=== PATIENT | male | born 1950 | race Caucasian/White ===

== ENCOUNTER → 2024-01-05 17:55 | Outpatient (CLI) | payer OTHER, SELFPAY ==
[2024-01-05 18:42] LABS: COVID-19 CEPHEID 4-PLEX PCR Negative (Negative); Influenza A - CEPHEID Flu A NEGATIVE (NEGATIVE); Influenza B - CEPHEID Flu B NEGATIVE (NEGATIVE); Respiratory Syncytial Virus Negative (Negative)
== END ==
PROVIDERS: Visit Provider Physician Assistant Medical
DX: R05.9 Cough, unspecified (principal)
CPT/HCPCS: 0241U

== ENCOUNTER 2024-01-06 09:48 | Observation (INO) | payer OTHER, SELFPAY ==
[2024-01-06] VITALS (9 sets, daily range): BP systolic 116–168; BP diastolic 69–82; PULSE 85–105; RESP 14–20; TEMP 36.8–37.1; O2SAT 85–98; BMI 29.0
--- NOTE | 2024-01-06 09:54 | DI.RAD.S_ITS ---
PROCEDURE: XR CHEST 1V INDICATIONS: chest pain TECHNIQUE: One view of the chest was acquired. COMPARISON: None. FINDINGS: Surgical changes and devices: None. Lungs and pleura: Lungs are clear. Masslike nodular density, right apex, possibly extrapulmonary. No pleural effusions or pneumothorax. Mediastinum: Mediastinal contours appear normal. Heart size is normal. Bones and chest wall: No suspicious bony lesions. Overlying soft tissues appear unremarkable. IMPRESSION: 1. No focal infiltrate. 2. Right apical masslike lesion. Recommend CT chest for further evaluation. Dictated by: Xu Ortiz M.D. on 01/06/2024 at 10:44 Approved by: Xu Ortiz M.D. on 01/06/2024 at 10:46
[2024-01-06] MEDS: SODIUM CHLORIDE 0.9% 1,000 ML 150 ML IV (10:04)
[2024-01-06 10:18] LABS: Add Manual Diff / Slide Review NO; Basophils Absolute Auto 0 /uL (0-100); Basophils Percent Auto 0.9 % (0-2); Eosinophils Absolute Auto 200 /uL (0-450); Hematocrit 43.7 % (41-53); Hemoglobin 14.8 g/dL (13.5-17.5); Lymphocytes Absolute Auto 900 /uL (1100-4500); Lymphocytes Percent Auto 15.7 % (25-40); Mean Corpuscular HGB Conc 33.8 % (30-36); Mean Corpuscular Hemoglobin 32.4 PG (26-34); Monocytes Absolute Auto 900 /uL (0-900); Monocytes Percent Auto 16.3 % (3-14); Neutrophils Absolute Auto 3600 /uL (1500-7000); Neutrophils Percent Auto 64.1 % (50-75); Platelet Count 241 X10^3/uL (150-400); Red Blood Cell Count 4.55 X10^6/uL (4.5-5.9); Red Cell Distribution Width 13.6 % (11.6-14.8); White Blood Cell Count 5.6 X10^3/uL (4.5-11.0)
[2024-01-06 10:24] LABS: Alanine Aminotransferase 27 IU/L (<50); Albumin 4.1 g/dL (3.5-5.0); Albumin Globulin Ratio 1.5 (1.0-2.8); Alkaline Phosphatase 80 U/L (38-126); Aspartate Aminotransferase 48 IU/L (17-59); BUN Creatinine Ratio 17.2 (6-22); Bilirubin Total 0.5 mg/dL (0.2-1.3); Blood Urea Nitrogen 15 mg/dL (9-20); Calcium 8.8 mg/dL (8.4-10.2); Carbon Dioxide 30 mmol/L (22-32); Chloride 100 mmol/L (98-107); Creatine Kinase 133 U/L (55-170); Estimated Glomerular Filt Rate > 60 mL/min (>60); Globulin 2.7 g/dL (1.7-4.1); Glucose 137 mg/dL (80-110); HEMOLYSIS 16 (0-50); Lipase 62 U/L (23-300); Potassium 4.1 mmol/L (3.4-5.1); Sodium 134 mmol/L (137-145); Total Protein 6.8 g/dL (6.3-8.2)
[2024-01-06 10:25] LABS: Lactate (Lactic Acid) 2.4 mmol/L (0.7-2.1)
--- NOTE | 2024-01-06 10:31 | ED_ITS ---
HPI - Syncope General Chief Complaint: Syncope Stated Complaint: SOB, passed out, tight throat Time Seen by Provider: 01/06/24 09:53 Source: EMS Mode of arrival: EMS History of Present Illness HPI narrative: Patient 73-year-old male without significant past medical history presenting today with a syncopal episode. 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 States that today he was getting ready to meet friends for breakfast he felt his throat was closing off any passed out. EMS gave him Benadryl and albuterol. He is able to speak and manage his own secretions. He has no chest pain. He was seen in the walk-in clinic yesterday because he has had this cough. He has not had fever or chills. Denies any significant shortness of breath. But he does not appear to have some difficulty swallowing he has no obvious angioedema. Reports that his previous anaphylactic reactions he has hives itching difficulty breathing and feels like his throat closes up. He denies any sort of seafood or shellfish. Related Data Home Medications Medication Instructions Recorded Confirmed No Known Home Medications 01/05/24 Allergies Allergy/AdvReac Type Severity Reaction Status Date / Time No Known Drug Allergies Allergy Unverified 01/06/24 09:58 Patient History Social History household members: none Smoking Status: Unknown if ever smoked Smoking Status: Unknown if ever smoked alcohol intake frequency: a few times a week Substance Use Type: does not use Exam Initial Vital Signs Initial Vital Signs: Vital Signs Temperature 98.3 F 01/06/24 09:54 Pulse Rate 100 H 01/06/24 09:54 Respiratory Rate 18 01/06/24 09:54 Blood Pressure 168/82 H 01/06/24 09:54 Pulse Oximetry 98 01/06/24 09:54 Oxygen Delivery Method Room Air 01/06/24 09:54 GENERAL: Alert 73-year-old male does appear in acute distress HEENT: Head atraumatic,EOMI, pupils reactive, face symmetric, no tongue swelling lip swelling uvula within normal limits he is managing secretions but is working a little bit harder to swallow no cervical lymphadenopathy CARDIOVASCULAR: Regular rate and rhythm without murmurs, rubs or gallops. RESPIRATORY: Breath sounds equal bilaterally, no wheezes rales or rhonchi. ABDOMEN: Soft, nontender. Normoactive bowel sounds all 4 quadrants. No guarding or rebound. EXTREMITIES: Normal range of motion, no clubbing or edema. Neurovascularly intact NEUROLOGICAL: Alert and oriented x4.Normal gait and speech. SKIN: Warm, dry, no laceration, no petechiae, no rashes or lesions. Course Orders Ordered: ED Orders 01/06/24 09:45 BNP [NT-proBNP (BNP-Adult 18+)] Stat Complete Blood Count AUTO DIFF Stat Comprehensive Metabolic Panel Stat D Dimer Stat Lactate (Lactic Acid) Stat Lipase Stat Troponin & CK Cardiac Panel Stat 01/06/24 09:54 XR chest 1V Stat EKG-12 Lead Stat 01/06/24 10:00 Respiratory Panel (Film Array) Stat 01/06/24 11:03 CT soft tissue neck w con Stat 01/06/24 11:29 CT angio chest PE protocol Stat Discontinued Medications Acetaminophen (Acetaminophen 325 Mg Tablet) 650 mg PO Q6H PRN PRN Reason: Fever/Mild Pain (1-3) Al Hydrox/Mg Hydrox/Simethicone (Mag Hydrox/Alum/Simeth 30 Ml Udc) 30 ml PO Q6HR PRN PRN Reason: Dyspepsia Albuterol/Ipratropium (Albuterol/Ipratropium 3 Ml Ampul) 3 ml INH NOW ONE Stop: 01/06/24 11:29 Last Admin: 01/06/24 11:43 Dose: 3 ml Documented By: MARCO ANTONIO Epinephrine HCl (Epinephrine 1 Mg/Ml) 0.5 mg IM NOW ONE Stop: 01/06/24 10:32 Last Admin: 01/06/24 10:48 Dose: 0.5 mg Documented By: OBI Heparin Sodium (Porcine) (Heparin 5,000 Unit/Ml Vial) 5,000 unit SUBCUT BID NICOLA Sodium Chloride (Normal Saline 0.9%) 1,000 mls @ 150 mls/hr IV CONT NICOLA Last Admin: 01/06/24 10:04 Dose: 150 mls/hr Documented By: OBI Sodium Chloride (Normal Saline 0.45%) 1,000 mls @ 100 mls/hr IV CONT NICOLA Magnesium Hydroxide (Magnesium Hydroxide 30 Ml Udc) 30 ml PO DAILY PRN PRN Reason: Constipation Methylprednisolone (Methylprednisolone 125 Mg/2 Ml Vial) 125 mg IV NOW ONE Stop: 01/06/24 10:32 Last Admin: 01/06/24 10:47 Dose: 125 mg Documented By: OBI Naloxone HCl (Naloxone 0.4 Mg/Ml Vial) 0.2 mg IV Q2MIN PRN PRN Reason: Opiate Reversal Ondansetron HCl (Ondansetron 4 Mg/2 Ml Inj) 4 mg IV Q8HR PRN PRN Reason: Nausea And Vomiting Oxycodone HCl (Oxycodone Ir 5 Mg Tablet) 5 mg PO Q3H PRN PRN Reason: Pain, Moderate (4-6) Vital Signs Vital signs: Vital Signs - 8 hr 01/06/24 10:51 01/06/24 11:43 01/06/24 12:12 Pulse Rate 85 96 H 92 H Respiratory Rate 14 20 20 Blood Pressure 131/69 126/71 Pulse Oximetry 97 97 97 Oxygen Delivery Method Nasal Cannula Nasal Cannula Nasal Cannula Oxygen Flow Rate 2 2 2 01/06/24 12:39 01/06/24 13:23 01/06/24 14:05 Pulse Rate 105 H 100 H Respiratory Rate 20 18 Blood Pressure 125/78 124/72 Pulse Oximetry 95 96 85 L Oxygen Delivery Method Room Air Room Air Room Air Oxygen Flow Rate 01/06/24 14:09 Pulse Rate Respiratory Rate Blood Pressure Pulse Oximetry 95 Oxygen Delivery Method Nasal Cannula Oxygen Flow Rate 2 MDM - Syncope Lab Data 01/06/24 09:45 01/06/24 09:45 Labs: Lab Results 01/06/24 01/06/24 01/06/24 Range/Units 09:45 10:00 12:50 WBC 5.6 (4.5-11.0) X10^3/uL RBC 4.55 (4.5-5.9) X10^6/uL Hgb 14.8 (13.5-17.5) g/dL Hct 43.7 (41-53) % MCV 96.0 (80-100) fL MCH 32.4 (26-34) PG MCHC 33.8 (30-36) % RDW 13.6 (11.6-14.8) % Plt Count 241 (150-400) X10^3/uL Neut % (Auto) 64.1 (50-75) % Lymph % (Auto) 15.7 L (25-40) % [place] % (Auto) 16.3 H (3-14) % Eos % (Auto) 3.0 (2-4) % Baso % (Auto) 0.9 (0-2) % Neut # (Auto) 3600 (6245-3525) /uL Lymph # (Auto) 900 L (9662-0869) /uL [place] # (Auto) 900 (0-900) /uL Eos # (Auto) 200 (0-450) /uL Baso # (Auto) 0 (0-100) /uL D-Dimer 945 H (<500) ng/ml Sodium 134 L (137-145) mmol/L Potassium 4.1 (3.4-5.1) mmol/L Chloride 100 (98-107) mmol/L Carbon Dioxide 30 (22-32) mmol/L BUN 15 (9-20) mg/dL Creatinine 0.87 (0.66-1.25) mg/dL Estimated GFR > 60 (>60) mL/min BUN/Creatinine Ratio 17.2 (6-22) Glucose 137 H (80-110) mg/dL Lactate 2.4 H 1.3 (0.7-2.1) mmol/L Calcium 8.8 (8.4-10.2) mg/dL Total Bilirubin 0.5 (0.2-1.3) mg/dL AST 48 (17-59) IU/L ALT 27 (<50) IU/L Alkaline Phosphatase 80 (38-126) U/L Total Creatine Kinase 133 (55-170) U/L Troponin I < 0.012 (0.01-0.034) ng/mL NT-Pro-B Natriuret Pep 21 (<125) pg/mL Total Protein 6.8 (6.3-8.2) g/dL Albumin 4.1 (3.5-5.0) g/dL Globulin 2.7 (1.7-4.1) g/dL Albumin/Globulin Ratio 1.5 (1.0-2.8) Lipase 62 (23-300) U/L Chlamy pneumoniae PCR Not detected (Not Detect) Adenovirus (PCR) Not detected (Not Detect) B.parapertussis DNA PCR Not detected (Not Detecte) Coronavirus OC43 (PCR) Not detected (Not Detect) Coronavirus HKU1 (PCR) Not detected (Not Detect) Coronavirus 229E (PCR) Not detected (Not Detect) SARS-CoV-2 (PCR) Not detected (Not Detecte) Coronavirus NL63 (PCR) Not detected (Not Detect) Human Metapneumovir PCR Not detected (Not Detect) Influenza Type A (PCR) Not detected (Not Detect) Influenza Type B (PCR) Not detected (Not Detect) M. pneumoniae (PCR) Not detected (Not Detect) Parainfluenza 1 (PCR) Not detected (Not Detect) Parainfluenza 2 (PCR) Not detected (Not Detect) Parainfluenza 3 (PCR) Detected H (Not Detect) Parainfluenza 4 (PCR) Not detected (Not Detect) RSV (PCR) Not detected (Not Detect) Entero/Rhino (PCR) Not detected (Not Detect) Point of Care Testing Glucose POC 121 Imaging Data Chest x-ray: Radiologist's Impression: PROCEDURE: XR CHEST 1V INDICATIONS: chest pain TECHNIQUE: One view of the chest was acquired. COMPARISON: None. FINDINGS: Surgical changes and devices: None. Lungs and pleura: Lungs are clear. Masslike nodular density, right apex, possibly extrapulmonary. No pleural effusions or pneumothorax. Mediastinum: Mediastinal contours appear normal. Heart size is normal. Bones and chest wall: No suspicious bony lesions. Overlying soft tissues appear unremarkable. IMPRESSION: 1. No focal infiltrate. 2. Right apical masslike lesion. Recommend CT chest for further evaluation. Dictated by: Xu Ortiz M.D. on 01/06/2024 at 10:44 Approved by: Xu Ortiz M.D. on 01/06/2024 at 10:46 CT scan - chest: Radiologist's Impression: PROCEDURE: CT ANGIO CHEST PE PROTOCOL INDICATIONS: mass right apex and hypoxic TECHNIQUE: After the administration of intravenous contrast, 2 mm thick sections acquired from the pulmonary apices to the posterior costophrenic angles. 3-dimensional maximum intensity projection (MIP) coronal and sagittal reformats were then acquired through the thorax. For radiation dose reduction, the following was used: automated exposure control, adjustment of mA and/or kV according to patient size. COMPARISON: [facility], CT, CT SOFT TISSUE NECK W CON, 01/06/2024, 11:17. [facility], CR, XR CHEST 1V, 01/06/2024, 9:57. FINDINGS: Image quality: Diagnostic. Central pulmonary arteries are well opacified. Segmental branches are poorly evaluated. Pulmonary arteries: Pulmonary arteries are normal in size, and demonstrate no intraluminal filling defects to suggest central pulmonary embolism. Artifact and heterogeneous opacification is present within the segmental branches bilaterally. Lower Neck: No enlarged lymph nodes. Thyroid: No thyroid nodules which require sonographic follow up, per consensus guidelines. Axillae: No enlarged lymph nodes. Chest Wall: Unremarkable. Bones: Unremarkable. Lungs and Pleura: No pneumothorax or pleural effusions. Minimal dependent changes are present within the right base. No right apical mass. Abnormality on chest x- ray corresponds to bony overgrowth at the costochondral junction. Heart: Heart size is normal. No pericardial effusion. Thoracic Vessels: No aortic aneurysm. Mediastinum and Shagufta: Scattered enlarged mediastinal lymph nodes are present the largest measuring 1.4 cm at the shahnaz. Right hilar node is present measuring 1.5 cm. . Esophagus: No wall thickening. There is prominent thickening with luminal narrowing in the distal esophagus. There is a central masslike appearance causing luminal narrowing appearing to originate posteriorly. Thickening extends across the gastroesophageal junction. Upper Abdomen: Visualized upper abdomen solid organs and bowel loops appear normal. IMPRESSION: No central pulmonary embolus. Segmental branches are heterogeneous and small areas of emboli cannot be definitively excluded compared artifact. Thickening with masslike appearance in the distal esophagus. Further evaluation with endoscopy is recommended to exclude presence of malignancy. Thickening extends across the gastroesophageal junction. Prominent mediastinal and hilar lymph nodes. While these could be reactive in nature, given esophageal findings, further evaluation is recommended. Dictated by: Jessica Hernandez M.D. on 01/06/2024 at 13:56 Approved by: Jessica Hernandez M.D. on 01/06/2024 at 14:00 ct soft tissue neck: Radiologist's Impression: ADDENDUMThis report includes an Addendum and supersedes previous reports for this exam. PROCEDURE: CT SOFT TISSUE NECK W CON INDICATIONS: throat closing TECHNIQUE: After the administration of intravenous contrast, 3.0 mm axial sections acquired from the sella to the aortic arch. Additional oblique axial 3.0 mm sections acquired through the pharynx. 3 mm thick coronal and sagittal reformats were generated. For radiation dose reduction, the following was used: automated exposure control. COMPARISON: None. FINDINGS: Image quality: Excellent. Lymph nodes: No enlarged lymph nodes seen throughout the neck. Vessels: Visualized vasculature appears patent. Neck spaces: The oropharynx, nasopharynx, and pharynx demonstrate no mucosal lesions. The vocal cords, false vocal cords, pyriform sinuses, epiglottis, vallecula, and tongue base all appear normal. Extramucosal spaces appear unremarkable. Glands: The parotid and submandibular glands appear normal. Thyroid gland is unremarkable. Miscellaneous: Visualized brain and orbits appear normal. Lung apices appear clear. Superficial soft tissues appear normal. Bones: No suspicious bony lesions. Visualized sinuses and mastoids appear unremarkable. IMPRESSION: No abnormal masses or fluid collections are identified. Dictated by: Jessica Hernandez M.D. on 01/06/2024 at 11:58 Approved by: Jessica Hernandez M.D. on 01/06/2024 at 11:59 ADDENDUM: COMPARISON:[facility], [place], XR CHEST 1V, 01/06/2024, 9:57. The area of abnormality identified on chest x-ray does not correspond to abnormal pulmonary mass. It reflects bony overgrowth at the costochondral junction. Dictated by: Jessica Hernandez M.D. on 01/06/2024 at 12:10 Approved by: Jessica Hernandez M.D. on 01/06/2024 at 12:11 Addendum Dictated By: Jessica Hernandez MD Addendum Signed By: 01/06/241210 Addendum Cosigned By: DD/ /19/1211 TD/TT: 01/06/2407/19/1211 PROCEDURE: CT SOFT TISSUE NECK W CON INDICATIONS: throat closing TECHNIQUE: After the administration of intravenous contrast, 3.0 mm axial sections acquired from the sella to the aortic arch. Additional oblique axial 3.0 mm sections acquired through the pharynx. 3 mm thick coronal and sagittal reformats were generated. For radiation dose reduction, the following was used: automated exposure control. COMPARISON: None. FINDINGS: Image quality: Excellent. Lymph nodes: No enlarged lymph nodes seen throughout the neck. Vessels: Visualized vasculature appears patent. Neck spaces: The oropharynx, nasopharynx, and pharynx demonstrate no mucosal lesions. The vocal cords, false vocal cords, pyriform sinuses, epiglottis, vallecula, and tongue base all appear normal. Extramucosal spaces appear unremarkable. Glands: The parotid and submandibular glands appear normal. Thyroid gland is unremarkable. Miscellaneous: Visualized brain and orbits appear normal. Lung apices appear clear. Superficial soft tissues appear normal. Bones: No suspicious bony lesions. Visualized sinuses and mastoids appear unremarkable. IMPRESSION: No abnormal masses or fluid collections are identified. Dictated by: Jessica Hernandez M.D. on 01/06/2024 at 11:58 Approved by: Jessica Hernandez M.D. on 01/06/2024 at 11:59 ECG Data Attestation: I personally reviewed and interpreted this ECG as follows: Prior ECG tracings: not available for review Interpretation: Normal sinus rhythm rate 90 OK interval 152 QRS 134 QTC 481 right bundle-branch block present no acute ST changes no priors to compare MDM Narrative Medical decision making narrative: Patient 73-year-old male presents syncopal episode and throat closing up. He is having some difficulty swallowing but is managing his secretions he has no other evidence of anaphylaxis. He is able to speak but there is some trouble. He has no stridor lung sounds are clear. He was seen for upper respiratory like symptoms that are walk-in clinic yesterday COVID, RSV influenza testing was negative. Will treat for possible anaphylaxis give epinephrine and Solu-Medrol. Was given Benadryl by EMS. Patient had very little help with anaphylaxis he has in no acute distress but there is some trouble swallowing. He is noted to now be hypoxic requiring 1-2 L of oxygen. Chest x-ray does show a right apical mass Blood work has been reviewed WBC 5.6, hemoglobin 14.8, hematocrit 43.7, platelets 240 D-dimer 945, lactate 2.4, troponin negative, respiratory panel positive CT soft tissue neck ordered which does not show any acute abnormality apical lung mass not identified. CT angio chest was done for elevated D-dimer and persistent hypoxia no evidence of pulmonary embolism but there is a masslike structure in the distal esophagus Dr. Gaytan consulted in regards to masslike structure in the distal esophagus Dr. Goode updated on patient's symptoms test results and kindly accepts to observation Discharge Plan Departure Patient Disposition: Admitted as Observation Clinical Impression: Acute bronchitis due to parainfluenza virus, Hypoxia, Esophageal mass Admit Date/Time: 01/06/24 14:14 Admit Provider: Chris Goode
[2024-01-06 10:33] LABS: NT-proBNP (BNP-Adult 18+) 21 pg/mL (<125)
[2024-01-06 10:35] LABS: Troponin I < 0.012 ng/mL (0.01-0.034)
[2024-01-06] MEDS: methylPREDNISolone 125 MG/2 ML VIAL IV (10:47)
[2024-01-06] MEDS: EPINEPHrine 1 MG/ML 0.5 MG IM (10:48)
--- NOTE | 2024-01-06 11:03 | DI.CT.S_ITS ---
PROCEDURE: CT SOFT TISSUE NECK W CON INDICATIONS: throat closing TECHNIQUE: After the administration of intravenous contrast, 3.0 mm axial sections acquired from the sella to the aortic arch. Additional oblique axial 3.0 mm sections acquired through the pharynx. 3 mm thick coronal and sagittal reformats were generated. For radiation dose reduction, the following was used: automated exposure control. COMPARISON: None. FINDINGS: Image quality: Excellent. Lymph nodes: No enlarged lymph nodes seen throughout the neck. Vessels: Visualized vasculature appears patent. Neck spaces: The oropharynx, nasopharynx, and pharynx demonstrate no mucosal lesions. The vocal cords, false vocal cords, pyriform sinuses, epiglottis, vallecula, and tongue base all appear normal. Extramucosal spaces appear unremarkable. Glands: The parotid and submandibular glands appear normal. Thyroid gland is unremarkable. Miscellaneous: Visualized brain and orbits appear normal. Lung apices appear clear. Superficial soft tissues appear normal. Bones: No suspicious bony lesions. Visualized sinuses and mastoids appear unremarkable. IMPRESSION: No abnormal masses or fluid collections are identified. Dictated by: Jessica Hernandez M.D. on 01/06/2024 at 11:58 Approved by: Jessica Hernandez M.D. on 01/06/2024 at 11:59
[2024-01-06 11:16] LABS: Adenovirus Not Detected (Not Detect); Bordetella pertussis Not Detected (Not Detect); Coronavirus 229E Not Detected (Not Detect); Coronavirus HKU1 Not Detected (Not Detect); Coronavirus NL 63 Not Detected (Not Detect); Coronavirus OC43 Not Detected (Not Detect); Human Metapneumovirus Not Detected (Not Detect); Human Rhinovirus/Enterovirus Not Detected (Not Detect); Influenza A Not Detected (Not Detect); Influenza B Not Detected (Not Detect); Parainfluenza Virus 1 Not Detected (Not Detect); Parainfluenza Virus 2 Not Detected (Not Detect); Parainfluenza Virus 3 Detected (Not Detect); Parainfluenza Virus 4 Not Detected (Not Detect); Respiratory Syncytial Virus Not Detected (Not Detect); SARS- CoV-2 Not Detected (Not Detecte)
[2024-01-06 11:17] LABS: B. parapertussis Not Detected (Not Detecte); Chlamydophila pneumoniae Not Detected (Not Detect); Mycoplasma pneumoniae Not Detected (Not Detect)
--- NOTE | 2024-01-06 11:29 | DI.CT.S_ITS ---
PROCEDURE: CT ANGIO CHEST PE PROTOCOL INDICATIONS: mass right apex and hypoxic TECHNIQUE: After the administration of intravenous contrast, 2 mm thick sections acquired from the pulmonary apices to the posterior costophrenic angles. 3-dimensional maximum intensity projection (MIP) coronal and sagittal reformats were then acquired through the thorax. For radiation dose reduction, the following was used: automated exposure control, adjustment of mA and/or kV according to patient size. COMPARISON: [facility], CT, CT SOFT TISSUE NECK W CON, 01/06/2024, 11:17. [facility], CR, XR CHEST 1V, 01/06/2024, 9:57. FINDINGS: Image quality: Diagnostic. Central pulmonary arteries are well opacified. Segmental branches are poorly evaluated. Pulmonary arteries: Pulmonary arteries are normal in size, and demonstrate no intraluminal filling defects to suggest central pulmonary embolism. Artifact and heterogeneous opacification is present within the segmental branches bilaterally. Lower Neck: No enlarged lymph nodes. Thyroid: No thyroid nodules which require sonographic follow up, per consensus guidelines. Axillae: No enlarged lymph nodes. Chest Wall: Unremarkable. Bones: Unremarkable. Lungs and Pleura: No pneumothorax or pleural effusions. Minimal dependent changes are present within the right base. No right apical mass. Abnormality on chest x-ray corresponds to bony overgrowth at the costochondral junction. Heart: Heart size is normal. No pericardial effusion. Thoracic Vessels: No aortic aneurysm. Mediastinum and Shagufta: Scattered enlarged mediastinal lymph nodes are present the largest measuring 1.4 cm at the shahnaz. Right hilar node is present measuring 1.5 cm. . Esophagus: No wall thickening. There is prominent thickening with luminal narrowing in the distal esophagus. There is a central masslike appearance causing luminal narrowing appearing to originate posteriorly. Thickening extends across the gastroesophageal junction. Upper Abdomen: Visualized upper abdomen solid organs and bowel loops appear normal. IMPRESSION: No central pulmonary embolus. Segmental branches are heterogeneous and small areas of emboli cannot be definitively excluded compared artifact. Thickening with masslike appearance in the distal esophagus. Further evaluation with endoscopy is recommended to exclude presence of malignancy. Thickening extends across the gastroesophageal junction. Prominent mediastinal and hilar lymph nodes. While these could be reactive in nature, given esophageal findings, further evaluation is recommended. Dictated by: Jessica Hernandez M.D. on 01/06/2024 at 13:56 Approved by: Jessica Hernandez M.D. on 01/06/2024 at 14:00
[2024-01-06] MEDS: ALBUTEROL/IPRATROPIUM 3 ML AMPUL INH (11:43)
[2024-01-06 11:50] LABS: D Dimer 945 ng/ml (<500); Reflexed Lactate in 2 Hours Y
--- NOTE | 2024-01-06 12:06 | RT ---
PT PATTIE NEB TX WELL, NO DISTRESS NOTED AND ON 2 LPM NC. pT DECREASED TO 1LPM NC SAO2@96%
[2024-01-06 13:08] LABS: Lactate 2HR (Lactic Acid Rflx) 1.3 mmol/L (0.7-2.1)
--- NOTE | 2024-01-06 13:40 | P.HP_ITS ---
History of Present Illness History of Present Illness Date Patient Seen: 01/06/24 Chief complaint: SOB, passed out, tight throat Narrative: From ED doctor: atoni 73-year-old male without significant past medical history presenting today with a syncopal episode. 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 States that today he was getting ready to meet friends for breakfast he felt his throat was closing off any passed out. EMS gave him Benadryl and albuterol. He is able to speak and manage his own secretions. He has no chest pain. He was seen in the walk-in clinic yesterday because he has had this cough. He has not had fever or chills. Denies any significant shortness of breath. But he does not appear to have some difficulty swallowing he has no obvious angioedema. Reports that his previous anaphylactic reactions he has hives itching difficulty breathing and feels like his throat closes up. He denies any sort of seafood or shellfish. Additional history: He notes he has had a cough for several days and this morning while walking had an acute sensation of not be able to get any error passed his larynx. It sounds as though this was a laryngospasm event. He lost time for a short time but really feels back to normal at this point. He was not hypoxic after transferring up to the floor. He denies any association with his history of anaphylaxis to seafood whatsoever. He notes he was quite physically active and jogs 3 to 5 times a week. He was staying at a hotel in the area [facility] and has the intention to follow up with regards to his abnormal esophagus on imaging back home into coma with his primary medical team. 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 Would like to discharge later today if he has no further issues. COUNT INCLUDES [facility] Social History household members: none Smoking Status: Unknown if ever smoked Meds Home Medications and Allergies Home Medications Medication Instructions Recorded Confirmed Type No Known Home Medications 01/05/24 History Allergies Allergy/AdvReac Type Severity Reaction Status Date / Time No Known Drug Allergies Allergy Unverified 01/06/24 09:58 Review of Systems Review of Systems Narrative: All else reviewed and otherwise unremarkable except as noted in the history and physical. Exam Vital Signs (past 8 hours): - 01/06/24 09:54 01/06/24 10:51 01/06/24 11:43 Temperature 98.3 F Pulse Rate 100 H 85 96 H Respiratory Rate 18 14 20 Blood Pressure 168/82 H 131/69 Pulse Oximetry 98 97 97 Oxygen Delivery Method Room Air Nasal Cannula Nasal Cannula Oxygen Flow Rate 2 2 01/06/24 12:12 01/06/24 12:39 01/06/24 13:23 Temperature Pulse Rate 92 H 105 H 100 H Respiratory Rate 20 20 18 Blood Pressure 126/71 125/78 124/72 Pulse Oximetry 97 95 96 Oxygen Delivery Method Nasal Cannula Room Air Room Air Oxygen Flow Rate 2 Oxygen Delivery Method Room Air Oxygen Flow Rate 2 Narrative Exam Narrative: NAD, alert and oriented, fluent speech, calm. Normocephalic skull, EOMI, anicteric sclera, symmetric pupils. Oropharynx unremarkable, no droop. Neck supple, midline trachea, no adenopathy. Lungs clear, normal rate and effort. Heart regular, no murmur gallop or rub. Abdomen is soft, non distended and non tender. Extremities are free of edema. Skin is free of rash or lesions. Joints are not swollen or deformed. Judgment appears to be normal. Objective ECG Impression: Normal sinus rhythm rate 90 [place] interval 152 QRS 134 QTC 481 right bundle-branch block present no acute ST changes no priors to compare Imaging Chest x-ray: Radiologist's impression: 1. No focal infiltrate. 2. Right apical masslike lesion. Neck soft tissue CT:: Radiologist's impression: No abnormal masses or fluid collections are identified. CT scan - chest: Radiologist's impression: No central pulmonary embolus. Segmental branches are heterogeneous and small areas of emboli cannot be definitively excluded compared artifact. Thickening with masslike appearance in the distal esophagus. Further evaluation with endoscopy is recommended to exclude presence of malignancy. Thickening extends across the gastroesophageal junction. Prominent mediastinal and hilar lymph nodes. While these could be reactive in nature, given esophageal findings, further evaluation is recommended. Labs 01/06/24 09:45 01/06/24 09:45 Labs: Laboratory Results - last 24 hr 01/06/24 01/06/24 01/06/24 09:45 10:00 12:50 WBC 5.6 RBC 4.55 Hgb 14.8 Hct 43.7 MCV 96.0 MCH 32.4 MCHC 33.8 RDW 13.6 Plt Count 241 Neut % (Auto) 64.1 Lymph % (Auto) 15.7 L [place] % (Auto) 16.3 H Eos % (Auto) 3.0 Baso % (Auto) 0.9 Neut # (Auto) 3600 Lymph # (Auto) 900 L [place] # (Auto) 900 Eos # (Auto) 200 Baso # (Auto) 0 D-Dimer 945 H Sodium 134 L Potassium 4.1 Chloride 100 Carbon Dioxide 30 BUN 15 Creatinine 0.87 Estimated GFR > 60 BUN/Creatinine Ratio 17.2 Glucose 137 H Lactate 2.4 H 1.3 Calcium 8.8 Total Bilirubin 0.5 AST 48 ALT 27 Alkaline Phosphatase 80 Total Creatine Kinase 133 Troponin I < 0.012 NT-Pro-B Natriuret Pep 21 Total Protein 6.8 Albumin 4.1 Globulin 2.7 Albumin/Globulin Ratio 1.5 Lipase 62 Chlamy pneumoniae PCR Not detected Adenovirus (PCR) Not detected B.parapertussis DNA PCR Not detected Coronavirus OC43 (PCR) Not detected Coronavirus HKU1 (PCR) Not detected Coronavirus 229E (PCR) Not detected SARS-CoV-2 (PCR) Not detected Coronavirus NL63 (PCR) Not detected Human Metapneumovir PCR Not detected Influenza Type A (PCR) Not detected Influenza Type B (PCR) Not detected M. pneumoniae (PCR) Not detected Parainfluenza 1 (PCR) Not detected Parainfluenza 2 (PCR) Not detected Parainfluenza 3 (PCR) Detected H Parainfluenza 4 (PCR) Not detected RSV (PCR) Not detected Entero/Rhino (PCR) Not detected Assessment & Plan Assessment & Plan narrative: 1. Acute hypoxic respiratory failure, present on admission and resolved. 2. Parainfluenza URI, present on admission and active. 3. Possible esophageal mass noted incidentally on CT, present on admission and active. 4. 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 No clear evidence for that. He was treated by EMS with Benadryl and albuterol. 5. Probable acute laryngospasm and syncope leading up to his hospital encounter today, improved. Plan: -he appears to be medically stable and is not hypoxic at this time. We will watch him for the next hour and if he remained stable he would like to discharge later today. Time Spent With Patient Time with patient: 30 to 49 minutes with 50% spent counseling/coordinating care Quality MIPS - Admit I confirm the patient?s Advance Care Plan is present, Code status is documented, Surrogate decision maker is in patient?s record [If Yes, STOP here]: Yes MIPS - Meds 'Current medications' to include all prescriptions, [id number] products, herbals, cannabis/cannabidiol products, and vitamin/mineral/dietary (nutritional) supplements. I have utilized all available resources to obtain, update, or review the patient?s current medications. [If Yes, STOP here]: Yes
--- NOTE | 2024-01-06 14:08 | PC.NURSE ---
Pt noted to drop down to 85% when sleeping. Pt placed on 2L nasal cannula to keep spO2 >90%. Currently at 95% on 2L
--- NOTE | 2024-01-06 17:28 | P.DS_ITS ---
History of Present Illness History of Present Illness Chief complaint: SOB, passed out, tight throat Narrative: From ED doctor: sergio 73-year-old male without significant past medical history presenting today with a syncopal episode. 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 States that today he was getting ready to meet friends for breakfast he felt his throat was closing off any passed out. EMS gave him Benadryl and albuterol. He is able to speak and manage his own secretions. He has no chest pain. He was seen in the walk-in clinic yesterday because he has had this cough. He has not had fever or chills. Denies any significant shortness of breath. But he does not appear to have some difficulty swallowing he has no obvious angioedema. Reports that his previous anaphylactic reactions he has hives itching difficulty breathing and feels like his throat closes up. He denies any sort of seafood or shellfish. Additional history: He notes he has had a cough for several days and this morning while walking had an acute sensation of not be able to get any error passed his larynx. It sounds as though this was a laryngospasm event. He lost time for a short time but really feels back to normal at this point. He was not hypoxic after transferring up to the floor. He denies any association with his history of anaphylaxis to seafood whatsoever. He notes he was quite physically active and jogs 3 to 5 times a week. He was staying at a hotel in the [facility] and has the intention to follow up with regards to his abnormal esophagus on imaging back home into coma with his primary medical team. 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 Would like to discharge later today if he has no further issues. Discharge Providers Provider Date of admission: 01/06/24 14:14 Discharge Date: 01/06/24 Primary care physician: Doctor Keven MD Consults: 01/06/24 14:16 Consult to General Surgery Routine Comment: Consulting Provider: Tom Gaytan Reason for consultation: esophageal mass on ct Has provider been notified: Yes Discharge provider: Chris Goode MD Summary Hospital Course Discharge Diagnosis: 1. Acute hypoxic respiratory failure, present on admission and resolved. 2. Parainfluenza URI, present on admission and active. 3. Possible esophageal mass noted incidentally on CT, present on admission and active. 4. 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 No clear evidence for that. He was treated by EMS with Benadryl and albuterol. 5. Probable acute laryngospasm and syncope leading up to his hospital encounter today, improved. Hospital Course: He was observed and had no further difficulty. He had a strong preference for discharge home today. He had no other issues. He will follow up with his primary care in [place] and so evaluate his esophageal mass with endoscopy may have. Status at Discharge Cognitive/behavioral status at discharge: oriented Functional status at discharge: independent ambulation Overall status at discharge: patient is back to baseline Time Spent with Patient Time spent: Greater than 30 minutes Exam Vital Signs (past 8 hours): - 01/06/24 09:54 01/06/24 10:51 01/06/24 11:43 Temperature 98.3 F Pulse Rate 100 H 85 96 H Respiratory Rate 18 14 20 Blood Pressure 168/82 H 131/69 Pulse Oximetry 98 97 97 Oxygen Delivery Method Room Air Nasal Cannula Nasal Cannula Oxygen Flow Rate 2 2 01/06/24 12:12 01/06/24 12:39 01/06/24 13:23 Temperature Pulse Rate 92 H 105 H 100 H Respiratory Rate 20 20 18 Blood Pressure 126/71 125/78 124/72 Pulse Oximetry 97 95 96 Oxygen Delivery Method Nasal Cannula Room Air Room Air Oxygen Flow Rate 2 01/06/24 14:05 01/06/24 14:09 01/06/24 15:15 Temperature 98.7 F Pulse Rate 94 H Respiratory Rate 18 Blood Pressure 116/70 Pulse Oximetry 85 L 95 95 Oxygen Delivery Method Room Air Nasal Cannula Oxygen Flow Rate 2 2 Oxygen Delivery Method Nasal Cannula Oxygen Flow Rate 2 Narrative Exam Narrative: NAD, alert and oriented. Fluent speech. Lungs are clear, normal rate and effort. Heart is regular, no murmur gallop or rub. Abdomen is soft, non distended. Extremities are free of edema. Objective Imaging Multiple studies:: Radiologist's impression: Chest x-ray: Radiologist's impression: 1. No focal infiltrate. 2. Right apical masslike lesion. Neck soft tissue CT:: Radiologist's impression: No abnormal masses or fluid collections are identified. CT scan - chest: Radiologist's impression: No central pulmonary embolus. Segmental branches are heterogeneous and small areas of emboli cannot be definitively excluded compared artifact. Thickening with masslike appearance in the distal esophagus. Further evaluation with endoscopy is recommended to exclude presence of malignancy. Thickening extends across the gastroesophageal junction. Prominent mediastinal and hilar lymph nodes. While these could be reactive in nature, given esophageal findings, further evaluation is recommended. Labs 01/06/24 09:45 01/06/24 09:45 Labs: Laboratory Results - last 24 hr 01/06/24 01/06/24 01/06/24 09:45 10:00 12:50 WBC 5.6 RBC 4.55 Hgb 14.8 Hct 43.7 MCV 96.0 MCH 32.4 MCHC 33.8 RDW 13.6 Plt Count 241 Neut % (Auto) 64.1 Lymph % (Auto) 15.7 L [place] % (Auto) 16.3 H Eos % (Auto) 3.0 Baso % (Auto) 0.9 Neut # (Auto) 3600 Lymph # (Auto) 900 L [place] # (Auto) 900 Eos # (Auto) 200 Baso # (Auto) 0 D-Dimer 945 H Sodium 134 L Potassium 4.1 Chloride 100 Carbon Dioxide 30 BUN 15 Creatinine 0.87 Estimated GFR > 60 BUN/Creatinine Ratio 17.2 Glucose 137 H Lactate 2.4 H 1.3 Calcium 8.8 Total Bilirubin 0.5 AST 48 ALT 27 Alkaline Phosphatase 80 Total Creatine Kinase 133 Troponin I < 0.012 NT-Pro-B Natriuret Pep 21 Total Protein 6.8 Albumin 4.1 Globulin 2.7 Albumin/Globulin Ratio 1.5 Lipase 62 Chlamy pneumoniae PCR Not detected Adenovirus (PCR) Not detected B.parapertussis DNA PCR Not detected Coronavirus OC43 (PCR) Not detected Coronavirus HKU1 (PCR) Not detected Coronavirus 229E (PCR) Not detected SARS-CoV-2 (PCR) Not detected Coronavirus NL63 (PCR) Not detected Human Metapneumovir PCR Not detected Influenza Type A (PCR) Not detected Influenza Type B (PCR) Not detected M. pneumoniae (PCR) Not detected Parainfluenza 1 (PCR) Not detected Parainfluenza 2 (PCR) Not detected Parainfluenza 3 (PCR) Detected H Parainfluenza 4 (PCR) Not detected RSV (PCR) Not detected Entero/Rhino (PCR) Not detected [facility] Social History household members: none Smoking Status: Unknown if ever smoked Discharge Assessment & Plan Assessment and Plan Assessment: 1. Acute hypoxic respiratory failure, present on admission and resolved. 2. Parainfluenza URI, present on admission and active. 3. Possible esophageal mass noted incidentally on CT, present on admission and active. 4. 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 No clear evidence for that. He was treated by EMS with Benadryl and albuterol. 5. Probable acute laryngospasm and syncope leading up to his hospital encounter today, improved. Plan of Treatment: Discharge home with no change in medications. He will follow up with his primary care to further be evaluated for a possible incidental finding of esophageal mass. Recommended is endoscopy. The patient understands these findings and the recommendations. Discharge Plan Discharge Plan Patient Disposition: Home Provider Discharge Comment: Stable for discharge. Patient prefers to follow up with possible esophageal mass workup with endoscopy in [place]. Discharge orders & Medications Prescriptions: No Action No Known Home Medications Medication counseling provided by Pharmacist: No Follow up/Referrals: Doctor Baca MD [Primary Care Provider] - Diet/Activity/Treatments Diet: Regular Visit Report/Discharge Packet Stand Alone Forms: Patient Portal/API Discharge Data Primary Care Provider: Doctor Keven Attending Provider: Chris Goode Admit Date/Time: 01/06/24 14:14
--- NOTE | 2024-01-06 18:03 | PC.NURSE ---
Pt arrived to the acute care at approximately 1500. Pt A&Ox4, VSS, ambulatory. O2 removed. No appreciable strider, lungs clear. RA 95%. Pt verbalizing desire to discharge today. Pt tolerated dinner. Pt agreeable to discharge plan. Education provided to pt on stroke s/s, worsening symptoms, followup with PCP regarding CTA results. Pt advised to call DI to have images pushed to PCP Edilberto in [place]. Pt verbalizes understanding. telemetry removed. IV discontinued. Pt ambulated to taxi at approximately 1800.
== END 2024-01-06 18:00 | disposition home or self-care (01) ==
LOC: ED 10:09 → AC 14:14
PROVIDERS: Admitting Provider Hospitalist; Emergency Provider Emergency Medicine; Referring Provider Emergency Medicine; Visit Provider Hospitalist
DX: R55 Syncope and collapse (principal); J96.01 Acute respiratory failure with hypoxia; J10.1 Influenza due to other identified influenza virus with other respiratory manifestations; R93.3 Abnormal findings on diagnostic imaging of other parts of digestive tract; Z11.52 Encounter for screening for COVID-19
CPT/HCPCS: 36415; 70491; 71045; 71275; 80053; 82550; 82962; 83605; 83690; 83880; 84484; 85025; 85379; 87633; 93005; 93010; 94640; 96372; 96374; 99285; G0378; J0171; J2919; Q9967